=== PATIENT | female | born 1980 | race Caucasian/White ===

== ENCOUNTER 2016-11-26 12:24 | Emergency (ER) | payer OTHER ==
--- NOTE | 2016-11-28 12:40 | ER ---
ADMIT: 11/26/2016 RM/LOC: ER [facility] MR#: [id number] [id number] [place], [place] [address] EPIFANIO CAMPOVERDE [address] [place] [address] Emergency Room Report SEX: F AGE: 36 : 1980 DATE: 11/26/2016 HISTORY OF PRESENT ILLNESS: The patient is a 36-year-old with chronic disk bulging problems. She presents to the emergency room because she is out of her medications and unable to get in to see her doctor. She does have an appointment for procedure, diskectomy, with Dr. Vinnie Altamirano on December 30. At this point, she quit working. As of today, she has been working in a [employer] doing over time and she says that they have taken a toll on her, requiring that she continue her medications but she is out of them. MRI was done on 11/14/2016, and it shows a small broad-based disk bulge with minimal desiccation of the L4-L5 disk. She has bilateral facet arthropathy, no acquired central spinal foraminal stenosis at this level. There is minimal enhancement at the dorsal aspect of the left L4, slightly superior to the facet and she is complaining of numbness down both legs. She does state that she can go to the bathroom, had no difficulty with bowel movements or voiding but is unable to stand up due to the burning sensation she has in her lumbar area. She is allergic to hydrocodone and she has a history of asthma, previous back injury, , and tubal ligation. CLINICAL IMPRESSION: Chronic back pain. This disorder herniated and bulging with radiculopathy of lumbar spine. NERY Colón / Vincent Moran MD / modl JOB #: [id number] CC: Vincent Moran MD, Attending Physician
[2017-05-24] MEDS ORDERED: PHENERGAN DPS25 MG PO (20:37)
[2017-05-24] MEDS ORDERED: VALIUM5 MG PO (20:37)
[2017-05-24] MEDS ORDERED: PERCOCET 5-3251 EACH PO (20:38)
[2017-06-05] MEDS ORDERED: PROAIR RESPICL90 MCG IH (19:26)
[2017-06-05] MEDS ORDERED: DUONEB DPS3 ML IH (19:26)
[2017-06-05] MEDS ORDERED: COLACE-DPS100 MG PO (19:26)
[2017-06-05] MEDS ORDERED: BACITRACIN1 EACH TP (19:27)
[2017-06-05] MEDS ORDERED: NEURONTIN DPS300 MG PO (19:27)
[2017-06-05] MEDS ORDERED: TYLENOL DPS325 MG PO (19:28)
[2017-06-05] MEDS ORDERED: PERCOCET 7.5-31 EACH PO (19:28)
[2017-06-05] MEDS ORDERED: CIPRO750 MG PO (19:29)
== END 2016-11-26 14:15 | disposition home or self-care (01) ==
LOC: ER 12:24
DX: M51.16 Intervertebral disc disorders with radiculopathy, lumbar region (principal); Z88.5 Allergy status to narcotic agent; Z79.899 Other long term (current) drug therapy

== ENCOUNTER 2017-03-05 08:27 | Day surgery (SDC) | payer OTHER ==
[~2017-03-05] VITALS: Ht 170.2 cm; Wt 105.0 kg
--- NOTE | 2017-03-06 08:22 | OR ---
ADMIT: 03/05/2017 RM/LOC: [facility] MR#: [id number] [address] [address] EPIFANIO CAMPOVERDE [address] [place] [address] Operative/Delivery Room Report SEX: F AGE: 36 : 1980 SURGERY DATE: 03/05/2017 SURGEON: Marcela Grigsby MD INSURANCE POLICY CLERK: None. PREOPERATIVE DIAGNOSES: 1. Lumbar spondylosis. 2. Lumbago. POSTOPERATIVE DIAGNOSES: 1. Lumbar spondylosis. 2. Lumbago. PROCEDURE PERFORMED: Bilateral lumbar medial branch block at L3, L4, L5, and S1 levels. INDICATION FOR THE PROCEDURE: The patient is a pleasant female with history of chronic low back pain secondary to above-mentioned diagnoses comes here for bilateral L3, L4, L5, and S1 lumbar medial branch block. ANESTHESIA: Local without sedation. ESTIMATED BLOOD LOSS: Zero. COMPLICATIONS: None immediately evident. DESCRIPTION OF THE PROCEDURE: After the patient was seen in the preoperative area, vital signs were taken. Prior to the procedure, the risks, benefits, and alternative therapies were discussed at length. The patient's consent was obtained and updated. The patient was taken to the fluoroscopy suite and placed on the fluoroscopy table in a prone position. Pressure points were padded to comfort. Monitors were applied and a timeout performed. The lumbosacral area was prepped and draped sterilely using ChloraPrep. C-arm fluoroscopy was then brought in to identify the junction of the pedicular and transverse process. Then lidocaine 1% was applied; approximately 1 mL was used to anesthetize the skin and underlying subcutaneous tissue at bilateral L3, L4, L5 and S1 levels. At each level, a 3.5 inch 22-gauge spinal needle was used. The needle was then advanced to make contact with the superior articular facet at each level, and then needle was placed between the junction ADMIT: 03/05/2017 RM/LOC: [facility] MR#: [id number] [address] [facility] [address] [place], [place] [address] EPIFANIO CAMPOVERDE [address] [place] [address] Operative/Delivery Room Report SEX: F AGE: 36 : 1980 of the superior articular facet and the transfer process. Then the patient received 0.5 mL of 0.25% Marcaine with approximately 40 mg of Depo-Medrol at each level. The patient had reproduction of her typical pain at each level. Then we moved on to the left side; we did the same procedure. The patient tolerated the procedure well. The patient was brought to the PACU where she recovered nicely without any complication. PLAN: The patient was examined after 20 minutes of the procedure and had 60% reduction of pain. Range of motion went from 10 degrees of extension to 20 degrees of extension. Discharge instructions were given. Followup as scheduled. The patient was discharged with a lyft driver. Marcela Grigsby MD/ oli JOB #: [id number] CC: Marcela Grigsby, Attending Physician NO FAMILY PHYSICIAN, Family Physician
[2017-05-24] MEDS ORDERED: PHENERGAN DPS25 MG PO (20:37)
[2017-05-24] MEDS ORDERED: VALIUM5 MG PO (20:37)
[2017-05-24] MEDS ORDERED: PERCOCET 5-3251 EACH PO (20:38)
[2017-06-05] MEDS ORDERED: COLACE-DPS100 MG PO (19:26)
[2017-06-05] MEDS ORDERED: DUONEB DPS3 ML IH (19:26)
[2017-06-05] MEDS ORDERED: PROAIR RESPICL90 MCG IH (19:26)
[2017-06-05] MEDS ORDERED: BACITRACIN1 EACH TP (19:27)
[2017-06-05] MEDS ORDERED: NEURONTIN DPS300 MG PO (19:27)
[2017-06-05] MEDS ORDERED: PERCOCET 7.5-31 EACH PO (19:28)
[2017-06-05] MEDS ORDERED: TYLENOL DPS325 MG PO (19:28)
[2017-06-05] MEDS ORDERED: CIPRO750 MG PO (19:29)
== END 2017-03-05 09:37 | disposition home or self-care (01) ==
LOC: SSS 08:27
DX: G89.29 Other chronic pain (principal); M47.816 Spondylosis without myelopathy or radiculopathy, lumbar region; M43.17 Spondylolisthesis, lumbosacral region; M79.1 Myalgia; M51.37 Other intervertebral disc degeneration, lumbosacral region; M48.06 Spinal stenosis, lumbar region; Z88.6 Allergy status to analgesic agent; Z98.51 Tubal ligation status; Z98.890 Other specified postprocedural states

== ENCOUNTER 2017-05-18 08:47 | Inpatient (IN) | payer OTHER ==
[~2017-05-18] VITALS: Ht 170.2 cm; Wt 107.2 kg
--- NOTE | ~2017-05-18 | DS ---
ADMIT: 05/18/2017 RM/LOC: 518 [facility] MR#: [id number] [facility]#: [id number] [address] [address] EPIFNAIO CAMPOVERDE [address] [place] [address] General Discharge Summary SEX: F AGE: 36 : 1980 ADMISSION DATE: 05/18/2017 DISCHARGE DATE: 05/23/2017 SERVICE: Neurosurgery REASON FOR ADMISSION: 1. Lumbar stenosis with neurogenic claudication. 2. Lumbosacral radiculopathy. 3. Acquired spondylolisthesis of the lumbar spine region. PROCEDURE: Transforaminal lumbar interbody fusion at lumbar 4-5. HOSPITAL COURSE: Ms. Campoverde tolerated her procedure well. Postoperatively, she was taken to the Med/Surg floor for monitoring and care. She was having some nausea and vomiting, and her medications were adjusted. Postop day #1, she was moving all extremities x4 with 5/5 strength. She was afebrile, and her vital signs are stable. She was complaining of numbness to her fingers. Her incision was clean, dry, and intact. She was evaluated by Occupational Therapy and Physical Therapy and tolerated this quite well. Postop day #2, she was afebrile. She was still complaining of some nausea and some dizziness. She had minimal oral intake. Her CINDY drain was patent with serosanguineous drainage and was discontinued without difficulty. Her medications were adjusted. She continued to work with the therapist. Postop day #3, she was afebrile, her nausea had lessened. She was ambulating well. She had no complaints. Her incision was clean, dry, and intact. She continued to work with therapy. Postop day #4, she was ambulating better. She was complaining of some hematuria. Postop day #5, she is afebrile, she was ambulating with a walker. Her urination had improved. She was ambulating, urinating, and defecating per norm and was requesting discharge home. DISCHARGE CONDITION: Good. MEDICATIONS: 1. Phenergan 25 mg p.o. q.4 hours p.r.n. 2. Valium 5 mg 1 to 2 tablets p.o. q.8 hours p.r.n. 3. Albuterol inhaler 2 puffs p.r.n. 4. Ipratropium p.r.n. DISCHARGE INSTRUCTIONS: Per Dr. Rogel, she can have a regular diet. She may shower, she should not take any tub baths, she should pat her incision dry. ADMIT: 05/18/2017 RM/LOC: 518 [facility] MR#: [id number] [address] [address] EPIFANIO CAMPOVERDE Sarbjit [address] [place] [address] General Discharge Summary SEX: F AGE: 36 : 1980 She should be up and ambulating. She should not take any NSAIDs. She should not drive until she is seen in clinic. She will call with any questions or concerns including neurological worsening, signs or symptoms of infection, or any other issues. FOLLOWUP: She will follow up with Cami in clinic in 2 weeks. DISPOSITION: She was discharged home. Total [id number] time for the discharge planning and care coordination was 30 minutes. Cami Chacon APRN / Vinnie Altamirano MD / oli JOB #: [id number] CC: Vinnie Altamirano MD, Attending Physician FAMILY PHYSICIAN, Family Physician
--- NOTE | 2017-05-19 12:38 | OR ---
ADMIT: 05/18/2017 RM/LOC: 502 [facility] MR#: [id number] [address] [address] EPIFANIO CAMPOVERDE [address] [place] [address] Operative/Delivery Room Report SEX: F AGE: 36 : 1980 SURGERY DATE: 05/18/2017 SURGEON: Vinnie Altamirano MD PREOPERATIVE DIAGNOSIS: Spondylolisthesis with radiculopathy, lumbar 4-5. POSTOPERATIVE DIAGNOSIS: Spondylolisthesis with radiculopathy, lumbar 4-5. PROCEDURES: 1. Wide facetectomy and laminectomy at lumbar 4-5 for decompression. 2. Transforaminal lumbar diskectomy with implant of structural allograft as well as morcellated autograft for arthrodesis. 3. Anterior arthrodesis via transforaminal lumbar interbody approach as well as posterolateral arthrodesis in the posterolateral gutters. 4. [place] of autograft through same incision with morcellation and reimplantation. 5. Placement of bilateral pedicle screws at lumbar 4 and lumbar 5 with intraoperative neuro monitoring with no sign of breach rhythm on the stimulation. 6. Intraoperative fluoroscopy and computed tomographic imaging with physician interpretation of films. ICE CREAM MAN: Cami Chacon APRN DESCRIPTION OF PROCEDURE: After gaining informed consent, the patient was taken to the operating theatre, placed under general endotracheal anesthesia in supine position, turned prone on a Louie table. All pressure points purposely padded prior to performing the procedure. She was prepped and draped in usual sterile fashion. A time-out was utilized to ascertain the correct site and side of surgery as well as other pertinent patient historical information. Counts were obtained at the beginning and at end of the case with no change betwixt two. Antibiotics were given within 1 hour of incision. Fluoroscope was brought into the field and lumbar 4-5 level was delineated. Once this was discerned, attention was turned to placing a needle at that level and then fashioning incision. Prior to incision, a time-out was utilized to ascertain the correct site and side of surgery as well as other pertinent patient historical information. Counts were obtained at the beginning and at end of the case with no change betwixt two. Antibiotics were given within 1 hour of incision. The thoracodorsal fascia was incised. Subperiosteal dissection was utilized to take the musculature off the spinous process lamina and out over top of the facet to the transverse process. Once this was completed, self-retaining retractors were placed and attention was turned to laminectomy. Various curettes, rongeurs, and a high-speed drill were used to resect the lamina, the joint was severely arthropathic with a very widened and loose joint space. This was resected both the medial and lateral facet at L4-5, resecting this area, widely decompressing the thecal sac. The ligaments were hypertrophic ADMIT: 05/18/2017 RM/LOC: 502 [facility] MR#: [id number] [address] [address] [place] EPIFANIO A [address] [place] [address] Operative/Delivery Room Report SEX: F AGE: 36 : 1980 and in grown. At this point, attention was turned to instrumentation after everything had been thoroughly decompressed in the posterior and posterolateral aspects. Utilizing the fluoroscope at lumbar 4 and lumbar 5 level, the posterior aspects of the pedicle was delineated and decorticated and then the pedicle finder was passed down through the pedicle into the vertebral body. This was sounded to ensure bony anatomy at 360 degrees and at depth and then, vancomycin powder screws were placed, this was done bilaterally at lumbar 4 and lumbar 5. At this point, attention was turned to the transforaminal lumbar interbody arthrodesis. An incision was fashioned in the disk space on the left of lumbar 4-5, disk space was the entered and various curettes, rongeurs, and rasps were utilized to resect as much of the disk as was possible, scraping down the endplates resecting out everything that was possible up to the anterior longitudinal ligament and utilizing fluoroscopy to ensure that this area was not breached. Once this was completed, this area was packed with autograft harvested through the same incision and admixed with allograft in the morcellated fashion. Once this was packed in, an appropriately-sized structural allograft tricortical spacer was brought into the field and the structural allograft was very cautiously tapped into place. There was no sign of complication. CT scan was obtained, revealing the hardware. The screws and rods were then connected with set caps and a cross connector was then implanted. Once this was done, the decorticated areas in the posterolateral recesses were packed with the remaining morcellated allograft and autograft. A CINDY drain was daylighted out. Pristine hemostasis was obtained and stab incisions were fashioned in the paraspinous musculature passing ropivacaine catheter into the paraspinous musculature, loading this with 5 mL of Marcaine on each side and then connecting to the On-Q bulb later ADMIT: 05/18/2017 RM/LOC: 502 [facility] MR#: [id number] [address] [address] EPIFANIO CAMPOVERDE [address] [place] [address] Operative/Delivery Room Report SEX: F AGE: 36 : 1980 in PACU. The wound was closed with simple interrupted 0 Vicryl in thoracodorsal fascia, simple inverted interrupted 2-0 Vicryl in the hypodermic tissue and subcuticular 3-0 Stratafix with Steri-Strips on the skin. Ms. Chacon assisted with suction, retraction, and closure at the end of the case. ESTIMATED BLOOD LOSS: 100 mL. SPECIMEN: Disk. DISPOSITION: Extubated and taken to postanesthesia care unit. Vinnie Altamirano MD/ oli JOB #: [id number] CC: Vinnie Altamirano, Attending Physician NO FAMILY PHYSICIAN, Family Physician
[2017-05-24] MEDS ORDERED: PHENERGAN DPS25 MG PO (20:37)
[2017-05-24] MEDS ORDERED: VALIUM5 MG PO (20:37)
[2017-05-24] MEDS ORDERED: PERCOCET 5-3251 EACH PO (20:38)
[2017-06-05] MEDS ORDERED: COLACE-DPS100 MG PO (19:26)
[2017-06-05] MEDS ORDERED: DUONEB DPS3 ML IH (19:26)
[2017-06-05] MEDS ORDERED: PROAIR RESPICL90 MCG IH (19:26)
[2017-06-05] MEDS ORDERED: NEURONTIN DPS300 MG PO (19:27)
[2017-06-05] MEDS ORDERED: BACITRACIN1 EACH TP (19:27)
[2017-06-05] MEDS ORDERED: PERCOCET 7.5-31 EACH PO (19:28)
[2017-06-05] MEDS ORDERED: TYLENOL DPS325 MG PO (19:28)
[2017-06-05] MEDS ORDERED: CIPRO750 MG PO (19:29)
== END 2017-05-23 13:30 | disposition home or self-care (01) | DRG 455 ==
LOC: WOR 08:47 → 5MS 08:47
PROVIDERS: ADMIT Neurological Surgery
PROC: 0SG0071 Fusion of Lumbar Vertebral Joint with Autologous Tissue Substitute, Posterior Approach, Posterior Column, Open Approach (ICD-10-PCS; principal; 2017-05-18)
PROC: 0SG0070 Fusion of Lumbar Vertebral Joint with Autologous Tissue Substitute, Anterior Approach, Anterior Column, Open Approach (ICD-10-PCS; principal; 2017-05-18)
PROC: 0SB20ZZ Excision of Lumbar Vertebral Disc, Open Approach (ICD-10-PCS; principal; 2017-05-18)
DX: M43.17 Spondylolisthesis, lumbosacral region (principal); E66.9 Obesity, unspecified; M54.17 Radiculopathy, lumbosacral region; J45.909 Unspecified asthma, uncomplicated; M19.90 Unspecified osteoarthritis, unspecified site; Z68.35 Body mass index [BMI] 35.0-35.9, adult